=== PATIENT | male | born 1960 | race Caucasian/White ===

== ENCOUNTER 2024-06-02 13:43 | Day surgery (SDC) | payer MEDICARE ==
[2024-06-02] MEDS ORDERED: Depo-Medrol 40 MG/ML IM ONE (13:44)
[2024-06-02] MEDS ORDERED: BUPIVACAINE 0.5% VIAL IJ ONE (13:44)
[2024-06-02] MEDS ORDERED: LIDOCAINE HCL 1% AMPUL 5 ML IJ ONE (13:44)
--- NOTE | 2024-06-02 19:20 | XRAY ---
Indication: Left SI joint injection. Intraoperative fluoroscopy provided for 12 seconds. Single digital spot image submitted for interpretation demonstrates posterior needle tip projecting over left SI joint. Small amount of contrast injected for needle tip placement. Correlate with intraoperative findings/report.
--- NOTE | 2024-06-02 20:32 | XRAY ---
12 seconds of fluoroscopy were used in surgery for a left sacroiliac joint injection.
== END 2024-06-02 17:04 | disposition home or self-care (01) ==
LOC: SDC-PAIN 13:43
PROVIDERS: ATTEND Psychiatry & Neurology Pain Medicine
DX: M46.1 Sacroiliitis, not elsewhere classified (principal)
CPT/HCPCS: 27096; 72170; 77002; Q9966